=== PATIENT | male | born 1965 | race Caucasian/White ===

== ENCOUNTER 2020-05-20 15:15 | Emergency (ER) | payer BC, OTHER ==
[2020-05-20 15:42] LABS: #Basophils 0.1 thou/uL (0.0-0.2); #Eosinphils 0.2 thou/uL (0.0-0.7); #Lymphocytes 3.1 thou/uL (1.20-3.40); #Monocytes 0.9 thou/uL (0.11-0.59); #Neutrophils 9.7 thou/uL (1.40-6.50); %Basophils 0.5 % (0.0-1.0); %Eosinophils 1.8 % (0.0-10.0); %Lymphocytes 22.4 % (21.0-51.0); %Monocytes 6.5 % (0.0-10.0); %Neutrophils 68.9 % (42.0-75.0); Hemoglobin 14.1 g/dL (14.0-18.0); Mean Corpuscular HGB CONC 34.3 g/dL (32.0-36.0); Mean Corpuscular Hemoglobin 29.9 pg (27.0-31.0); Mean Corpuscular Volume 87.1 fL (78.0-98.0); Mean Platelet Volume 8.3 fL (7.4-10.4); Platelet Count 231 thou/uL (130-400); RBC Distribution Width 11.6 % (11.5-14.5); Red Blood Cell (RBC) Count 4.72 mill/uL (4.70-6.10)
[2020-05-20 16:07] LABS: ALT (SGPT) 22 U/L (8-55); AST (SGOT) 16 U/L (5-34); Albumin 4.5 g/dL (3.5-5.0); Alkaline Phosphatase 67 U/L (40-110); Anion Gap 16 mmol/L (10-20); BUN (Urea Nitrogen) 14 mg/dL (8.4-25.7); Bilirubin, Total 0.4 mg/dL (0.2-1.2); Calc. Creatinine Clearance 0 mL/min (70-130); Calcium 9.1 mg/dL (7.8-10.44); Carbon Dioxide 23 mmol/L (22-29); Chloride 105 mmol/L (98-107); Globulin 3.3 g/dL (2.4-3.5); Glucose 93 mg/dL (70-105); Lipase 16 U/L (8-78); Protein, Total 7.8 g/dL (6.0-8.3); Sodium 140 mmol/L (136-145)
[2020-05-20] MEDS ORDERED: Ketorolac Tromethamine 30 MG/ML VIAL ONE (16:17)
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
== END 2020-05-20 16:51 | disposition home or self-care (01) ==
LOC: ERS 15:15
DX: M25.512 Pain in left shoulder (principal); M25.561 Pain in right knee; I10 Essential (primary) hypertension; F17.210 Nicotine dependence, cigarettes, uncomplicated; Z79.899 Other long term (current) drug therapy; V89.2XXA Person injured in unspecified motor-vehicle accident, traffic, initial encounter
CPT/HCPCS: 71045; 72100; 80053; 83690; 84484; 85025; 93005; 96374; J1885

== ENCOUNTER 2023-04-08 07:59 | Inpatient (IN) | payer OTHER ==
[2023-04-08] MEDS ORDERED: Nitroglycerin 2% Ointment 1 INCH/1 GM Packet ONE (08:19)
[2023-04-08] MEDS ORDERED: Aspirin Chewable 81 MG TAB ONE (08:20)
[2023-04-08 08:35] LABS: Hematocrit 48.9 % (42.0-52.0); Hemoglobin 16.8 g/dL (14.0-18.0); Mean Corpuscular HGB CONC 34.4 g/dL (32.0-36.0); Mean Corpuscular Hemoglobin 31.4 pg (27.0-31.0); Mean Corpuscular Volume 91.4 fl (78.0-98.0); Mean Platelet Volume 10.6 fL (7.4-10.4); Platelet Count 233 10x3/uL (130-400); RBC Distribution Width 12.5 % (11.5-14.5); Red Blood Cell (RBC) Count 5.35 mill/uL (4.70-6.10); White Blood Cell (WBC) Count 14.3 10x3/uL (4.8-10.8)
[2023-04-08 08:42] LABS: Delete Auto Diff?? YES; Manual Diff?? YES
[2023-04-08] MEDS ORDERED: methylPREDNISolone Sod Succ/PF 125 MG/2 ML VIAL ONE (08:49)
[2023-04-08] MEDS ORDERED: Magnesium 2 GM/50 ML BAG (IN WATER) ONE (08:49)
[2023-04-08] MEDS ORDERED: Furosemide 40 MG/4 ML VIAL ONE (08:56)
[2023-04-08 08:58] LABS: ALT (SGPT) 87 U/L (8-55); AST (SGOT) 55 U/L (5-34); Albumin 4.6 g/dL (3.5-5.0); Alkaline Phosphatase 58 U/L (40-110); Anion Gap 14 mmol/L (10-20); BUN (Urea Nitrogen) 11 mg/dL (8.4-25.7); Bilirubin, Total 1.2 mg/dL (0.2-1.2); Calc. Creatinine Clearance 0 mL/min (70-130); Calcium 8.7 mg/dL (7.8-10.44); Carbon Dioxide 25 mmol/L (22-29); Chloride 102 mmol/L (98-107); Estimated GFR 83; Globulin 2.6 g/dL (2.4-3.5); Glucose 127 mg/dL (70-105); Potassium 3.3 mmol/L (3.5-5.1); Protein, Total 7.2 g/dL (6.0-8.3); Sodium 138 mmol/L (136-145)
[2023-04-08 09:01] LABS: Troponin I 0.033 ng/mL (< 0.028)
[2023-04-08] MEDS ORDERED: Ipratropium/Albuterol 3 ML NEB ONE (09:09)
[2023-04-08 09:32] LABS: Band 1 % (5-11); CellaVision Operator ID LAB.GE; Lymphocytes 17 % (21-51); Monocytes 1 % (0-10); Neutrophil 73 % (42-75); Platelet Adequacy Comment Platelets Normal; Polychromasia SLIGHT = 2-3 cells HPF (0-2); Reactive Lymphocytes 7 % (0-10); Total Cell Count 101
[2023-04-08 09:51] LABS: SARS-CoV-2 NAA Rapid Test Not Detected (NotDetected)
[2023-04-08] MEDS ORDERED: Lorazepam 2 MG/ML VIAL IM PRN (10:20)
[2023-04-08] MEDS ORDERED: Ondansetron ODT 4 MG TAB PO PRN (10:20)
[2023-04-08] MEDS ORDERED: Lorazepam 1 MG TAB PO PRN (10:20)
[2023-04-08] MEDS ORDERED: Electrolyte Replacement Protocol 1 EACH FS SCH (10:30)
[2023-04-08] MEDS ORDERED: Potassium Chloride 20 MEQ TAB PO SCH (10:30)
[2023-04-08 11:37] LABS: Troponin I 0.027 ng/mL (< 0.028)
[2023-04-08 11:54] VITALS: BMI 30.2
[2023-04-08] MEDS ORDERED: Iopamidol-370 76% 500 ML MDV (1 ML CHARGE) ONE (13:05)
[2023-04-08] MEDS: Thiamine HCl 200 MG/2 ML VIAL SLOW IVP SCH (13:12)
[2023-04-08] MEDS: Furosemide 40 MG/4 ML VIAL SLOW IVP SCH (13:12)
[2023-04-08 14:41] LABS: Troponin I 0.022 ng/mL (< 0.028)
[2023-04-08] MEDS: Carvedilol 6.25 MG TAB PO SCH (16:31)
[2023-04-09 04:50] LABS: Hematocrit 47.5 % (42.0-52.0); Hemoglobin 16.1 g/dL (14.0-18.0); Mean Corpuscular HGB CONC 33.9 g/dL (32.0-36.0); Mean Corpuscular Hemoglobin 31.1 pg (27.0-31.0); Mean Corpuscular Volume 91.9 fl (78.0-98.0); Mean Platelet Volume 10.7 fL (7.4-10.4); Platelet Count 233 10x3/uL (130-400); RBC Distribution Width 12.5 % (11.5-14.5); Red Blood Cell (RBC) Count 5.17 mill/uL (4.70-6.10); White Blood Cell (WBC) Count 14.3 10x3/uL (4.8-10.8)
[2023-04-09 05:17] LABS: Delete Auto Diff?? YES; Manual Diff?? YES
[2023-04-09 05:21] LABS: Anion Gap 15 mmol/L (10-20); BUN (Urea Nitrogen) 22 mg/dL (8.4-25.7); Calc. Creatinine Clearance 118 mL/min (70-130); Calcium 8.6 mg/dL (7.8-10.44); Carbon Dioxide 26 mmol/L (22-29); Chloride 102 mmol/L (98-107); Estimated GFR 98; Glucose 130 mg/dL (70-105); Potassium 3.6 mmol/L (3.5-5.1); Sodium 139 mmol/L (136-145)
[2023-04-09] MEDS: Furosemide 40 MG/4 ML VIAL SLOW IVP SCH ×2 (05:50→13:56)
[2023-04-09] MEDS: Multivit, Therapeutic 1 TAB PO SCH (07:29)
[2023-04-09] MEDS: Lisinopril 10 MG TAB PO SCH (07:29)
[2023-04-09] MEDS: Spironolactone 25 MG TAB PO SCH (07:29)
[2023-04-09] MEDS: Carvedilol 6.25 MG TAB PO SCH ×2 (07:29→16:22)
[2023-04-09] MEDS: Folic Acid 1 MG TAB PO SCH (07:29)
[2023-04-09 07:44] LABS: Band 2 % (5-11); CellaVision Operator ID LAB.GE; Lymphocytes 8 % (21-51); Metamyelocyte 3 % (0-0); Monocytes 5 % (0-10); Neutrophil 82 % (42-75); Platelet Adequacy Comment Platelets Normal; Polychromasia SLIGHT = 2-3 cells HPF (0-2); Total Cell Count 99
[2023-04-09] MEDS ORDERED: Lorazepam 1 MG TAB PO PRN (10:20)
[2023-04-09] MEDS: Thiamine HCl 200 MG/2 ML VIAL SLOW IVP SCH (11:25)
[2023-04-09 16:23] VITALS: BP 140/89
[2023-04-10 03:48] LABS: #Basophils 0.1 thou/uL (0.0-0.2); #Eosinphils 0.1 thou/uL (0.0-0.7); #Monocytes 1.3 thou/uL (0.11-0.59); #Neutrophils 10.5 thou/uL (1.40-6.50); %Basophils 0.5 % (0.0-1.0); %Eosinophils 0.5 % (0.0-10.0); %Monocytes 7.5 % (0.0-10.0); %Neutrophils 60.3 % (42.0-75.0); Hematocrit 51.3 % (42.0-52.0); Hemoglobin 17.5 g/dL (14.0-18.0); Mean Corpuscular HGB CONC 34.1 g/dL (32.0-36.0); Mean Corpuscular Hemoglobin 31.9 pg (27.0-31.0); Mean Corpuscular Volume 93.6 fl (78.0-98.0); Mean Platelet Volume 10.7 fL (7.4-10.4); Platelet Count 249 10x3/uL (130-400); RBC Distribution Width 12.6 % (11.5-14.5); Red Blood Cell (RBC) Count 5.48 mill/uL (4.70-6.10); White Blood Cell (WBC) Count 17.4 10x3/uL (4.8-10.8)
[2023-04-10 04:13] LABS: Anion Gap 15 mmol/L (10-20); BUN (Urea Nitrogen) 26 mg/dL (8.4-25.7); Calc. Creatinine Clearance 95 mL/min (70-130); Calcium 8.8 mg/dL (7.8-10.44); Carbon Dioxide 25 mmol/L (22-29); Chloride 102 mmol/L (98-107); Estimated GFR 76; Glucose 90 mg/dL (70-105); Potassium 3.8 mmol/L (3.5-5.1); Sodium 138 mmol/L (136-145)
[2023-04-10] MEDS: Furosemide 40 MG/4 ML VIAL SLOW IVP SCH (05:01)
[2023-04-10] MEDS: Carvedilol 6.25 MG TAB PO SCH (08:21)
[2023-04-10] MEDS: Spironolactone 25 MG TAB PO SCH (08:22)
[2023-04-10] MEDS: Folic Acid 1 MG TAB PO SCH (08:22)
[2023-04-10] MEDS: Lisinopril 10 MG TAB PO SCH (08:22)
[2023-04-10] MEDS: Multivit, Therapeutic 1 TAB PO SCH (08:22)
[2023-04-10] MEDS ORDERED: Lorazepam 1 MG TAB PO PRN (10:20)
[2023-04-10] MEDS: Thiamine HCl 200 MG/2 ML VIAL SLOW IVP SCH (10:29)
[2023-04-10 12:05] VITALS: TEMP 98
[2023-04-11] MEDS ORDERED: Thiamine 100 MG TAB PO SCH (09:00)
[2023-04-11] MEDS ORDERED: Lorazepam 0.5 MG TAB PO PRN (10:20)
== END 2023-04-10 13:12 | disposition home or self-care (01) | DRG 291 ==
LOC: ERS 07:59 → IMCU/EMU 11:35
PROVIDERS: ADMIT Internal Medicine; ATTEND Family Medicine
DX: I11.0 Hypertensive heart disease with heart failure (principal); I50.23 Acute on chronic systolic (congestive) heart failure; J96.01 Acute respiratory failure with hypoxia; I42.6 Alcoholic cardiomyopathy; E87.6 Hypokalemia; Z88.8 Allergy status to other drugs, medicaments and biological substances; Z79.82 Long term (current) use of aspirin; Z79.899 Other long term (current) drug therapy; Z98.890 Other specified postprocedural states; F17.210 Nicotine dependence, cigarettes, uncomplicated; Z11.52 Encounter for screening for COVID-19; M19.90 Unspecified osteoarthritis, unspecified site; I25.2 Old myocardial infarction; D72.829 Elevated white blood cell count, unspecified; F10.20 Alcohol dependence, uncomplicated
CPT/HCPCS: 36415; 36416; 71045; 71275; 80048; 80053; 83605; 83880; 84484; 85025; 87040; 93005; 94640; 94660; 96365; 96375; J1940; J2930; J3411; J3475; J7620; Q9967

== ENCOUNTER 2024-12-29 22:06 | Inpatient (IN) | payer OTHER ==
[2024-12-29 22:41] LABS: #Basophils 0.12 10x3/uL (0.0-0.2); #Eosinophils 0.32 10x3/uL (0.0-0.7); #Monocytes 1.26 10x3/uL (0.11-0.59); #Neutrophils 7.42 10x3/uL (1.40-6.50); %Basophils 1.1 % (0.0-1.0); %Eosinophils 2.9 % (0.0-10.0); %Lymphocytes 16.8 % (21.0-51.0); %Monocytes 11.4 % (0.0-10.0); %Neutrophils 66.9 % (42.0-75.0); Hematocrit 44.0 % (42.0-52.0); Hemoglobin 15.4 g/dL (14.0-18.0); Mean Corpuscular Hemoglobin 32.2 pg (27.0-31.0); Mean Corpuscular Volume 91.9 fL (78.0-98.0); Platelet Count 178 10x3/uL (130-400); Red Blood Cell (RBC) Count 4.79 mill/uL (4.70-6.10); White Blood Cell (WBC) Count 11.08 10x3/uL (4.8-10.8)
[2024-12-29 23:13] LABS: ALT (SGPT) 26 U/L (Less than 45); AST (SGOT) 22 U/L (11-34); Albumin 3.9 g/dL (3.1-4.5); Alkaline Phosphatase 67 U/L (40-110); Anion Gap 17 mmol/L (10-20); BUN (Urea Nitrogen) 40 mg/dL (8.4-25.7); Bilirubin, Total 0.8 mg/dL (0.3-1.2); Calc. Creatinine Clearance 0 mL/min (70-130); Calcium 8.2 mg/dL (7.8-10.44); Carbon Dioxide 20 mmol/L (22-29); Chloride 97 mmol/L (98-107); Globulin 2.9 g/dL (2.4-3.5); Glucose 109 mg/dL (70-105); Potassium 3.3 mmol/L (3.5-5.1); Sodium 131 mmol/L (136-145)
[2024-12-29 23:16] LABS: Troponin I 0.018 ng/mL (< 0.028)
[2024-12-29] MEDS ORDERED: Aspirin Chewable 81 MG TAB ONE (23:17)
[2024-12-29] MEDS ORDERED: Electrolyte Replacement Protocol 1 EACH FS SCH (23:45)
[2024-12-30] MEDS ORDERED: Acetaminophen 325 MG TAB PO PRN (00:45)
[2024-12-30] MEDS ORDERED: Ondansetron PF 4 MG/2 ML Vial IVP PRN (00:45)
[2024-12-30 04:25] VITALS: BMI 28.3
[2024-12-30 04:34] LABS: #Basophils 0.10 10x3/uL (0.0-0.2); #Eosinophils 0.41 10x3/uL (0.0-0.7); #Monocytes 1.12 10x3/uL (0.11-0.59); #Neutrophils 6.67 10x3/uL (1.40-6.50); %Basophils 0.9 % (0.0-1.0); %Eosinophils 3.7 % (0.0-10.0); %Lymphocytes 24.5 % (21.0-51.0); %Monocytes 10.1 % (0.0-10.0); %Neutrophils 60.3 % (42.0-75.0); Hematocrit 45.4 % (42.0-52.0); Hemoglobin 15.6 g/dL (14.0-18.0); Mean Corpuscular Hemoglobin 32.2 pg (27.0-31.0); Mean Corpuscular Volume 93.6 fL (78.0-98.0); Platelet Count 180 10x3/uL (130-400); Red Blood Cell (RBC) Count 4.85 mill/uL (4.70-6.10); White Blood Cell (WBC) Count 11.07 10x3/uL (4.8-10.8)
[2024-12-30 04:57] LABS: Anion Gap 12 mmol/L (10-20); BUN (Urea Nitrogen) 36 mg/dL (8.4-25.7); Calc. Creatinine Clearance 45 mL/min (70-130); Calcium 8.1 mg/dL (7.8-10.44); Carbon Dioxide 24 mmol/L (22-29); Chloride 99 mmol/L (98-107); Glucose 97 mg/dL (70-105); Magnesium 2.3 mg/dL (1.6-2.6); Potassium 3.7 mmol/L (3.5-5.1); Sodium 131 mmol/L (136-145)
[2024-12-30] MEDS: Carvedilol 6.25 MG TAB PO SCH (08:50)
[2024-12-30] MEDS: Aspirin 325 MG TAB PO SCH (08:50)
[2024-12-30] MEDS ORDERED: Carvedilol 6.25 MG TAB PO SCH (09:00)
[2024-12-30] MEDS ORDERED: Aspirin 81 mg Enteric Coated Tablet PO SCH (09:00)
[2024-12-31 04:49] LABS: #Basophils 0.12 10x3/uL (0.0-0.2); #Eosinophils 0.34 10x3/uL (0.0-0.7); #Monocytes 0.81 10x3/uL (0.11-0.59); #Neutrophils 5.33 10x3/uL (1.40-6.50); %Basophils 1.4 % (0.0-1.0); %Eosinophils 3.8 % (0.0-10.0); %Lymphocytes 25.1 % (21.0-51.0); %Monocytes 9.1 % (0.0-10.0); %Neutrophils 60.1 % (42.0-75.0); Hematocrit 44.0 % (42.0-52.0); Hemoglobin 15.1 g/dL (14.0-18.0); Mean Corpuscular Hemoglobin 32.5 pg (27.0-31.0); Mean Corpuscular Volume 94.6 fL (78.0-98.0); Platelet Count 176 10x3/uL (130-400); Red Blood Cell (RBC) Count 4.65 mill/uL (4.70-6.10); White Blood Cell (WBC) Count 8.86 10x3/uL (4.8-10.8)
[2024-12-31 05:15] LABS: Anion Gap 11 mmol/L (10-20); BUN (Urea Nitrogen) 21 mg/dL (8.4-25.7); Calc. Creatinine Clearance 89 mL/min (70-130); Calcium 8.6 mg/dL (7.8-10.44); Carbon Dioxide 25 mmol/L (22-29); Chloride 107 mmol/L (98-107); Glucose 108 mg/dL (70-105); Potassium 4.1 mmol/L (3.5-5.1); Sodium 139 mmol/L (136-145)
[2024-12-31] MEDS: Sacubitril 49 MG/Valsartan 51 MG TABLET PO SCH (09:19)
[2024-12-31 12:16] VITALS: BP 161/74; TEMP 98.2
== END 2024-12-31 12:57 | disposition home or self-care (01) | DRG 641 ==
LOC: ERS 22:06 → OBS 12-30 00:21 → OBSVTOIN 12-30 13:51
PROVIDERS: ADMIT Family Medicine; ATTEND Family Medicine
DX: E86.9 Volume depletion, unspecified (principal); N17.9 Acute kidney failure, unspecified; I50.22 Chronic systolic (congestive) heart failure; E86.0 Dehydration; I11.0 Hypertensive heart disease with heart failure; E78.5 Hyperlipidemia, unspecified; F17.210 Nicotine dependence, cigarettes, uncomplicated; M25.519 Pain in unspecified shoulder; Z79.82 Long term (current) use of aspirin; Z79.899 Other long term (current) drug therapy
CPT/HCPCS: 36415; 71045; 80048; 80053; 82550; 83735; 83880; 84484; 85025; 93005; 93010; 96360; G0378; J7120